=== PATIENT | female | born 1945 | race Caucasian/White ===

== ENCOUNTER → 2018-11-27 | Outpatient (CLI) | payer MEDICARE ==
[~2018-11-27] MED LIST: B Complex #11 EACH; IBUP400 PO; MOMENI; PROZAC20 MG PO; TRIA80TC TOP; VITAMIN D5000 UNIT
[2018-11-27 12:14] LABS: Source, Urine Clean Catch
[2018-11-27 12:56] LABS: Bilirubin, Urine Neg (Neg); Blood, Urine 5+ (Neg); Glucose Qualitative, Urine Neg (Neg); Ketones, Urine 1+ (Neg); Leukocyte Esterase, Urine 3+ (Neg); Nitrite, Urine Pos (Neg); Protein, Urine 3+ (Neg); Specific Gravity, Urine 1.025 (1.003-1.022); Urobilinogen, Urine NORM (Normal)
[2018-11-27 13:20] LABS: Color, Urine Yellow (P-Yellow)
[2018-11-27 13:21] LABS: Appearance, Urine Hazy (Clear); White Blood Cells, Urine 50-100 /hpf (0-5)
[2018-11-27 13:23] LABS: Bacteria Many /hpf; Squamous Epithelial Cells Few /hpf (Few)
== END | disposition home or self-care (01) ==
LOC: LAB 12:10 → LAB SHORT 12:10
PROVIDERS: Obstetrics & Gynecology
DX: R30.0 Dysuria (principal)
CPT/HCPCS: 81001; 87077; 87086; 87186

== ENCOUNTER → 2019-03-16 | Outpatient (CLI) | payer MEDICARE ==
[2019-03-18 07:08] LABS: HPV 16 Negative (Negative); HPV 18 Negative (Negative); HPV OTHER HR TYPES Negative (Negative)
== END | disposition home or self-care (01) ==
LOC: LAB 09:43 → LAB SHORT 09:43
PROVIDERS: Obstetrics & Gynecology
DX: Z12.4 Encounter for screening for malignant neoplasm of cervix (principal)
CPT/HCPCS: 87624; G0123

== ENCOUNTER 2020-11-29 09:12 | Day surgery (SDC) | payer OTHER ==
[~2020-11-29] VITALS: Ht 157.5 cm; Wt 59.3 kg
--- NOTE | 2020-11-29 09:46 | NUR ---
11/29/20 0946 SUSAN JUNE TETRACAINE DROP INSERTED INTO R EYE AT 0934 MARIA INES INSERTED INTO R EYE AT 0937
== END 2020-11-29 11:11 | disposition home or self-care (01) ==
LOC: ORSCSDS 09:12
PROVIDERS: Ophthalmology
PROC: 08RJ3JZ Replacement of Right Lens with Synthetic Substitute, Percutaneous Approach (ICD-10-PCS; principal; 2020-11-29 10:30)
DX: H25.11 Age-related nuclear cataract, right eye (principal); I10 Essential (primary) hypertension; Z79.899 Other long term (current) drug therapy; K21.9 Gastro-esophageal reflux disease without esophagitis
CPT/HCPCS: J2001; J2250; J3010; J3301; V2632

== ENCOUNTER 2020-12-20 06:44 | Day surgery (SDC) | payer OTHER ==
[~2020-12-20] VITALS: Ht 157.5 cm; Wt 59.0 kg
[2020-12-20] MEDS ORDERED: CLEM1.34 (07:04)
== END 2020-12-20 08:50 | disposition home or self-care (01) ==
LOC: ORSCSDS 06:44
PROVIDERS: Ophthalmology
PROC: 08RK3JZ Replacement of Left Lens with Synthetic Substitute, Percutaneous Approach (ICD-10-PCS; principal; 2020-12-20 08:00)
DX: H25.12 Age-related nuclear cataract, left eye (principal); F41.9 Anxiety disorder, unspecified; Z79.899 Other long term (current) drug therapy
CPT/HCPCS: J2001; J2250; J3010; J3301; J7040; J7120; V2632

== ENCOUNTER → 2021-07-30 | Outpatient (CLI) | payer OTHER ==
[~2021-07-30] MED LIST changes: +CLEM1.34
[2021-07-30 21:25] LABS: Adenovirus F 40/41 Not Detected (NOT DETECT); Astrovirus Not Detected (NOT DETECT); Campylobacter Sp Not Detected (NOT DETECT); Cryptosporidium Not Detected (NOT DETECT); Cyclospora Cayetanensis Not Detected (NOT DETECT); E. Coli O157 Not Detected (NOT DETECT); Entamoeba Histolytica Not Detected (NOT DETECT); Enteroaggregative E. coli-EAEC Not Detected (NOT DETECT); Enteropathogenic E. coli-EPEC Not Detected (NOT DETECT); Enterotoxigenic E. coli-ETEC Not Detected (NOT DETECT); Giardia Lamblia Not Detected (NOT DETECT); Norovirus GI/GII Not Detected (NOT DETECT); Plesiomonas Shigelloides Not Detected (NOT DETECT); Rotavirus A Not Detected (NOT DETECT); Salmonella Sp Not Detected (NOT DETECT); Sapovirus Not Detected (NOT DETECT); Shiga Toxin-prod E. coli-STEC Not Detected (NOT DETECT); Shigella/Enteroin E. coli-EIEC Not Detected (NOT DETECT); Vibrio Cholerae Not Detected (NOT DETECT); Vibrio Sp Not Detected (NOT DETECT); Yersinia Enterocolitica Not Detected (NOT DETECT)
== END ==
LOC: LAB SHORT 10:30
PROVIDERS: Internal Medicine
DX: R19.7 Diarrhea, unspecified (principal)
CPT/HCPCS: 0097U

== ENCOUNTER 2021-10-22 07:41 | Day surgery (SDC) | payer OTHER ==
[~2021-10-22] VITALS: Ht 157.5 cm; Wt 56.4 kg
[~2021-10-22 07:41] MED LIST changes: +PSEUDOEPHEDRINE30 M1 PO
== END 2021-10-22 10:17 | disposition home or self-care (01) ==
LOC: ORSCSDS 07:41
PROVIDERS: Internal Medicine Gastroenterology
PROC: 0DBC8ZX Excision of Ileocecal Valve, Via Natural or Artificial Opening Endoscopic, Diagnostic (ICD-10-PCS; principal; 2021-10-22 09:00)
PROC: 0DBL8ZX Excision of Transverse Colon, Via Natural or Artificial Opening Endoscopic, Diagnostic (ICD-10-PCS; principal; 2021-10-22 09:00)
PROC: 0DBE8ZX Excision of Large Intestine, Via Natural or Artificial Opening Endoscopic, Diagnostic (ICD-10-PCS; principal; 2021-10-22 09:00)
DX: R19.7 Diarrhea, unspecified (principal); K57.30 Diverticulosis of large intestine without perforation or abscess without bleeding; D12.3 Benign neoplasm of transverse colon; D12.0 Benign neoplasm of cecum; Z87.891 Personal history of nicotine dependence; Z79.899 Other long term (current) drug therapy
CPT/HCPCS: 88305; J2704; J7120

== ENCOUNTER 2021-12-24 06:02 | Day surgery (SDC) | payer OTHER ==
[~2021-12-24] VITALS: Ht 157.5 cm; Wt 58.6 kg
[2021-12-24] MEDS ORDERED: ALLERCLEAR10 MG PO (06:28)
[2021-12-24] MEDS ORDERED: POLY500 PO (06:29)
--- NOTE | 2021-12-24 07:51 | NUR ---
12/24/21 0751 Wanda Campbell NO PREOP ANTIBIOTICS ORDERED PER .
--- NOTE | 2021-12-24 08:30 | NUR ---
PT [id number], ABLE TO REPOSITION SELF IN BED. PT REQUESTING PO FLUIDS.
--- NOTE | 2021-12-24 08:40 | NUR ---
PT TOLERATING PO FLUIDS AND FOOD, REPORTS NO NAUSEA.
--- NOTE | 2021-12-24 09:27 | NUR ---
Patient up to Ambulate independently. Gait steady. Discharge instructions reviewed with patient. Patient verbalizes understanding. Copy given to patient to take home. Patient States Post-Procedure ride home has been arranged. Discharged via wheelchair to private car for ride home. PT ABLE TO URINATE BEFORE DISCHARGE. ALL BELONGINGS RETURNED TO PATIENT TO INCLUDE PURSE AND PHONE.
== END 2021-12-24 23:49 | disposition home or self-care (01) ==
LOC: ORSCMMR 06:02 → ORD 07:30 → ORSCMMR 23:49
PROVIDERS: Obstetrics & Gynecology
PROC: 0UDB8ZX Extraction of Endometrium, Via Natural or Artificial Opening Endoscopic, Diagnostic (ICD-10-PCS; principal; 2021-12-24 07:30)
DX: R93.89 Abnormal findings on diagnostic imaging of other specified body structures (principal); N84.0 Polyp of corpus uteri; F41.9 Anxiety disorder, unspecified; K21.9 Gastro-esophageal reflux disease without esophagitis; Z79.899 Other long term (current) drug therapy
CPT/HCPCS: 88305; J1100; J1885; J2250; J2370; J2405; J2704; J3010; J7120

== ENCOUNTER → 2022-11-18 | Outpatient (CLI) | payer OTHER ==
[~2022-11-18] MED LIST changes: +ALLERCLEAR10 MG PO; +POLY500 PO
== END | disposition home or self-care (01) ==
LOC: LAB SHORT 11:09 → LAB 11:09
DX: R35.0 Frequency of micturition (principal)
CPT/HCPCS: 87077; 87086; 87186